=== PATIENT | female | born 1990 | race Two or more races ===

== ENCOUNTER 2022-10-04 22:50 | Inpatient (IN) | payer MEDICARE, MEDICAID, SELFPAY ==
[2022-10-04 23:22] VITALS: BMI 37.5
[2022-10-04 23:23] VITALS: BP 150/87; PULSE 80; RESP 16; TEMP 36.8; O2SAT 98
--- NOTE | 2022-10-05 | PC.NURSE ---
Pt was direct admitted from [facility] d/t stating that she wants to overdose on her medications. Upon reviewing the pts H&P from [facility] it is noted that the was admitted in [facility] a wk ago. On admission assessment pt states that she does not have any thoughts of harming herself, and that she came to the hospital d/t receiving an eviction notice d/t sending a text to her roommate and the roommate reported her to the housing development specialist. Pt denies sending any text because she doesn't want to talk to her. Pt states she has to be in a new place by 11/08, and that she doesn't know where she is going to go. Then pt states that she has another appartment lined up, and she has to sign a lease agreement when she gets out of the hospital. Pt denies any type of substance abuse. Pt appears pleasant and cooperative, not well kept. Pt also comments that she coded in the hospital in February of last year. When this nurse asked her to elaborate regarding this incident she states she was sitting in the chair and she passed out, then when she came to she had a tube in her throat.
[2022-10-05] MEDS: ondansetron 4 MG Tablet PO (00:03)
[2022-10-05 05:54] VITALS: RESP 15
[2022-10-05 06:00] VITALS: BMI 37.5
[2022-10-05 06:31] VITALS: BP 143/85; PULSE 99; RESP 16; TEMP 36.6; O2SAT 95
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
[2022-10-05 08:24] LABS: Glucose Point of Care 481 mg/dL (70-110)
[2022-10-05] MEDS: metformin 500 mg Tablet PO ×2 (09:38→17:05)
[2022-10-05] MEDS: insulin lispro 100 unit/1 mL 14 UNIT SUBCUT ×3 (09:57→18:11)
[2022-10-05 11:21] LABS: Glucose Point of Care 386 mg/dL (70-110)
[2022-10-05] MEDS: gabapentin 300 mg Capsule 600 MG PO ×3 (12:30→20:23)
[2022-10-05 14:00] VITALS: BP 132/97; PULSE 92; RESP 16; TEMP 36.6; O2SAT 97
[2022-10-05] MEDS: propranolol 20 mg Tablet 10 MG PO ×2 (14:25→20:23)
[2022-10-05] MEDS: risperiDONE 1 mg Tablet PO ×2 (14:25→20:23)
[2022-10-05] MEDS: magnesium oxide 400 mg tablet PO (17:05)
[2022-10-05] MEDS: sennosides-docusate Tablet 1 TAB PO (17:05)
[2022-10-05] MEDS: ferrous sulfate EC 325 mg Tablet PO (17:05)
[2022-10-05 19:37] LABS: Glucose Point of Care 331 mg/dL (70-110)
[2022-10-05 20:11] VITALS: BP 150/96; PULSE 88; RESP 18; TEMP 36.4; O2SAT 96
[2022-10-05] MEDS: insulin glargine 100 units/1 mL 45 UNIT SUBCUT (20:16)
[2022-10-05] MEDS: quetiapine 100 mg Tablet PO (20:23)
[2022-10-05] MEDS: chlorPROMazine 50 mg Tablet 100 MG PO (20:23)
[2022-10-06 06:00] VITALS: BP 145/90; PULSE 98; RESP 18; TEMP 36.6; O2SAT 96
[2022-10-06] MEDS: insulin lispro 100 unit/1 mL 14 UNIT SUBCUT ×3 (08:41→17:39)
[2022-10-06] MEDS: atorvastatin 40 mg Tablet 20 MG PO (08:42)
[2022-10-06] MEDS: buPROPion XL (24 HR) 150 mg Tablet PO (08:42)
[2022-10-06] MEDS: sennosides-docusate Tablet 1 TAB PO ×2 (08:42→20:43)
[2022-10-06] MEDS: propranolol 20 mg Tablet 10 MG PO ×3 (08:42→20:45)
[2022-10-06] MEDS: gabapentin 300 mg Capsule 600 MG PO ×4 (08:42→20:44)
[2022-10-06] MEDS: magnesium oxide 400 mg tablet PO ×2 (08:42→20:44)
[2022-10-06] MEDS: sertraline 100 mg Tablet PO (08:42)
[2022-10-06] MEDS: lisinopril 20 mg Tablet PO (08:43)
[2022-10-06] MEDS: ferrous sulfate EC 325 mg Tablet PO ×2 (08:43→20:45)
[2022-10-06] MEDS: levothyroxine 150 mcg Tablet PO (08:43)
[2022-10-06] MEDS: quetiapine 100 mg Tablet PO ×2 (08:43→20:44)
[2022-10-06] MEDS: risperiDONE 1 mg Tablet PO ×3 (08:43→20:44)
[2022-10-06] MEDS: metformin 500 mg Tablet PO ×2 (08:43→17:38)
[2022-10-06] MEDS: pantoprazole DR 40 mg Tablet PO (08:43)
[2022-10-06 08:46] LABS: Glucose Point of Care 314 mg/dL (70-110)
[2022-10-06 11:11] LABS: Glucose Point of Care 384 mg/dL (70-110)
[2022-10-06 14:00] VITALS: BP 121/82; PULSE 90; RESP 16; TEMP 36.9; O2SAT 95
--- NOTE | 2022-10-06 15:50 | P.NPUPN_ITS ---
Subjective NPU Subjective: Patient presented today reporting that she is feeling better. She reports feeling to work with the social work team to sure up options postdischarge. She reports she feels comfortable with solution she has for the problematic roommate and living situations. She reports he is feeling calmer than on her plan and we agreed we would reevaluate her in the morning and the possibility of discharge thereafter. Mental Status Exam MSE Comments: This is an obese white female, in hospital scrubs, with adequate grooming and eye contact. No abnormal movements except for mild psychomotor retardation. Cooperative with exam in mild distress. Speech was normal rate and volume. Mood described as good; affect congruent. Thought process, organized. Thought content: patient denied any suicidal or homicidal ideation, there were no delusions reported or noted, patient denied any auditory or visual hallucinations. Attention, concentration, and memory appeared intact, but none were formally tested. Alert and oriented times three. Insight and judgment are fair, impulse control is limited. Vitals/I&O/Wt Last Vital Signs Temp 98.5 F 10/06/22 14:00 Pulse 90 10/06/22 14:00 Resp 16 10/06/22 14:00 BP 121/82 10/06/22 14:00 Pulse Ox 95 10/06/22 14:00 O2 Del Method Room Air 10/06/22 14:00 A&P Assessment and plan (1) PTSD (post-traumatic stress disorder): (2) Major depressive disorder, recurrent: Plan This is a 31-year-old, White female with some genetic loading for mental health and addiction issues, who presents after some recent incidents with a roommate and housing challenges leading to stress and anxiety. 1. Continue current medication. 2. Encourage individual, group, and milieu therapy. 3. Continue q-15-minute checks for safety. Involuntary Hold Information 96 Hour Hold: 96 Hour Involuntary Admission: No Attestations NPU Medical Necessity Statement*: Inpatient hospitalization is medically necessary and the clinically appropriate intervention, at this time. We will monitor medications and make changes as indicated. Likely length of stay is days. Coding Level of Care Code Acute Code for [facility] Fwd Diagnoses PTSD (post-traumatic stress disorder) F43.10 Major depressive disorder, recurrent F33.9
[2022-10-06 17:33] LABS: Glucose Point of Care 263 mg/dL (70-110)
[2022-10-06] MEDS: insulin glargine 100 units/1 mL 45 UNIT SUBCUT (17:39)
[2022-10-06] MEDS: ibuprofen 600 mg Tablet PO (18:11)
[2022-10-06 20:36] VITALS: BP 141/84; PULSE 91; RESP 16; TEMP 36.7; O2SAT 96
[2022-10-06] MEDS: chlorPROMazine 50 mg Tablet 100 MG PO (20:43)
[2022-10-06] MEDS: acetaminophen 325 mg Tablet 650 MG PO (20:44)
[2022-10-06 21:19] LABS: Glucose Point of Care 340 mg/dL (70-110)
[2022-10-07 06:00] VITALS: BP 136/86; PULSE 65; RESP 16; TEMP 36.6; O2SAT 96
[2022-10-07] MEDS: acetaminophen 325 mg Tablet 650 MG PO (06:14)
[2022-10-07 08:20] LABS: Glucose Point of Care 375 mg/dL (70-110)
[2022-10-07] MEDS: ibuprofen 600 mg Tablet PO (08:28)
[2022-10-07] MEDS: metformin 500 mg Tablet PO (08:29)
[2022-10-07] MEDS: lisinopril 20 mg Tablet PO (08:29)
[2022-10-07] MEDS: buPROPion XL (24 HR) 150 mg Tablet PO (08:29)
[2022-10-07] MEDS: risperiDONE 1 mg Tablet PO (08:29)
[2022-10-07] MEDS: gabapentin 300 mg Capsule 600 MG PO ×2 (08:29→12:12)
[2022-10-07] MEDS: sennosides-docusate Tablet 1 TAB PO (08:30)
[2022-10-07] MEDS: atorvastatin 40 mg Tablet 20 MG PO (08:30)
[2022-10-07] MEDS: magnesium oxide 400 mg tablet PO (08:30)
[2022-10-07] MEDS: sertraline 100 mg Tablet PO (08:30)
[2022-10-07] MEDS: ferrous sulfate EC 325 mg Tablet PO (08:30)
[2022-10-07] MEDS: levothyroxine 150 mcg Tablet PO (08:30)
[2022-10-07] MEDS: pantoprazole DR 40 mg Tablet PO (08:30)
[2022-10-07] MEDS: propranolol 20 mg Tablet 10 MG PO (08:31)
[2022-10-07] MEDS: insulin lispro 100 unit/1 mL 14 UNIT SUBCUT ×2 (09:23→12:11)
--- NOTE | 2022-10-07 11:02 | DCPLANNER ---
IMM was printed and explained and give to pt and copy put in file
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
[2022-10-07 11:21] VITALS: BP 136/86; PULSE 65; RESP 16; TEMP 36.6; O2SAT 96
[2022-10-07 11:36] LABS: Glucose Point of Care 394 mg/dL (70-110)
== END 2022-10-07 13:14 | disposition home or self-care (01) | DRG 882 ==
PROVIDERS: Admitting Provider Psychiatry & Neurology Psychiatry; Visit Provider Psychiatry & Neurology Psychiatry
DX: F43.10 Post-traumatic stress disorder, unspecified (principal); F33.9 Major depressive disorder, recurrent, unspecified; E11.9 Type 2 diabetes mellitus without complications; Z79.4 Long term (current) use of insulin; E78.00 Pure hypercholesterolemia, unspecified; I10 Essential (primary) hypertension; G47.30 Sleep apnea, unspecified; Z81.8 Family history of other mental and behavioral disorders; Z81.3 Family history of other psychoactive substance abuse and dependence
CPT/HCPCS: 36416; 82962; 94660; 96372; 97165; 99238; J1815; Q0161; Q0162